=== PATIENT | female | born 1980 | race Caucasian/White ===

== ENCOUNTER 2016-07-22 03:53 | Emergency (ER) | payer BC ==
--- NOTE | 2016-07-22 05:25 | ED NURSING NOTES ---
Clinical Report - [facility] [address] [place] [address] 07/22/2016 3:54 Patient: JENNMay TRIAGE Triage time 04:10. Acuity: LEVEL 4. Chief Complaint: RIGHT LOWER EXTREMITY PAIN, SWELLING, REDNESS and TINGLING. Location of symptoms- (right ankle). Alert. DAVY COMA SCORE: [place] Coma Scale: 15- eyes open spontaneously (4); best verbal response- oriented x 4 (5); best motor response- obeys commands (6). --04:11 Negrito Washburn R.N. 04:05 07/22/16. BP: 116/59. HR: 65. RR: 18 (regular and unlabored). O2 saturation: 100%. Temp: 97.8 F (oral). Pain level now: 11/01. --04:11 Negrito Washburn R.N. Weight: 99.7 kg stated. Height/Length: 70 inches Per Patient. BMI: 31.5. --04:07 Negrito Washburn R.N. Medications PROzac Oral. --04:06 Negrito Washburn R.N. Allergies Hydrocodone. --04:06 Negrito Washburn R.N. Tetracycline. --04:06 Negrito Washburn R.N. History Arrived by private vehicle. Historian: patient. Accompanied by spouse. This occurred just prior to arrival. She has had swelling and redness. PAST MEDICAL HX: Last normal menstrual period- . SOCIAL HX: Never smoker. Occasional alcohol use. No drug use. ( States feeling safe at home, denies a chance of being , denies HI/SI). SELF HARM ASSESSMENT: A self harm assessment was performed. The patient answered "no" to the question "Do you have thoughts of harming or killing yourself?". NUTRITIONAL RISK ASSESSMENT: The nutritional risk assessment revealed no deficiencies. FUNCTIONAL ASSESSMENT: Functional assessment: no impairments noted. LEARNING NEEDS ASSESSMENT: The learning needs assessment revealed no barriers. --04:11 Negrito Washburn R.N. ( Patient states that she "slipper" on the carpet while going to let out the cat, and fell down "2-3" stairs. denies having other injuries, and states that she heard a "crack" coming from her ankle. 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 --04:15 Negrito Washburn R.N. PROBLEMS: Hypertension. Neck Pain. Depression. --04:07 Negrito Washburn R.N. ADDITIONAL SURGERIES: Neck Surgery. --04:07 Negrito Washburn R.N. Interventions ID band on patient. To treatment room. --04:11 Negrito Washburn R.N. PHYSICAL ASSESSMENT Ambulatory to room. GENERAL / NEURO / PSYCH: Oriented X 4. Alert. Appears in pain. Does not appear anxious or in distress. ( See triage note). EXTREMITIES: Neuro-vascular status intact to the extremity. SKIN: Skin is warm and dry. ( minor superficial abrasion to right medial ankle). --04:12 Negrito Washburn R.N. EXTREMITIES: ( Right ankle is reddened and swollen, painful to movement, touch, and position). --04:16 Negrito Washburn R.N. NURSING PROGRESS NOTES Cold pack applied. Reassurance given. Two patient identifiers checked. Call light placed in reach. Side rails up x 1. Bed placed in lowest position. Brakes of bed on. Patient ready for evaluation- chart flagged. Patient waiting for evaluation. --04:13 Negrito Washburn R.N. Patient ready for evaluation- ED physician notified. --04:13 Negrito Washburn R.N. Short leg posterior fiberglass lower extremity splint applied to right leg, ankle and foot. Distal pulses intact and sensation intact. ( sugar tong). --05:17 Freda Logan ( Splint applied by tech). --05:45 Negrito Washburn R.N. DISPOSITION / DISCHARGE Departure time: 05:44. Condition at departure: stable. No learning barriers present. Discharge instructions provided and reviewed with the patient and spouse. Reviewed warnings. Reviewed medication(s) side effects, precautions, dosing and course information. Prescription(s) given to the patient. Treatments reviewed. Reviewed referrals for followup. Patient and spouse verbalized understanding. Written instructions provided in [place]. The patient was discharged home and accompanied by spouse. She left the Emergency Department in a wheelchair on crutches and via private vehicle. Spouse driving. --05:45 Negrito Washburn R.N. 05:43 07/22/16. BP: 118/77. HR: 65 (regular). RR: 16 (regular and unlabored). O2 saturation: 100% on room air. Pain level now: 10/01. --05:45 Negrito Washburn R.N. Locked/Released at 07/22/2016 5:45 by Negrito Washburn R.N.
--- NOTE | 2016-07-22 05:25 | ED ORDER SUMMARY ---
..... Patient: JENNMay OrderSheet [facility] VisitID: [id number] [place] [address] 35y, F Registration Date/Time: 07/22/2016 ORDER SHEET Weight: 99.7 kg (stated) Allergies: Hydrocodone, Tetracycline GENERAL ORDERS: Ankle 3 or 4V Right Urgent (04:13 07/22/2016 DDavis R.N. per protocol) (Ack 4:18 Alice UP Electrical System Specialist) (4:28 DDavis R.N.) Splint (LE) (Right) (Sugar Tong) (Fiberglass) (04:45 07/22/2016 Yolanda SNYDER) (Cancelled: Other4:46 Yolanda SNYDER) Crutches (04:46 07/22/2016 Yolanda SNYDER) (Ack 5:12 DDavis R.N.) (5:14 CHategekimana) Splint (LE) (Right) (Short Leg Posterior, Sugar Tong) (Fiberglass) (04:47 07/22/2016 Yolanda SNYDER) (Ack 5:12 DDavis R.N.) (5:14 CHategekimana) MEDICATION ORDERS: IV FLUIDS: ORDER SHEET NOTES: [Electronically signed by Negrito Washburn R.N. (05:45 07/22/2016)] [Electronically signed by Kit Menjivar MD (08:22 07/22/2016)] [Electronically locked/signed by Negrito Washburn R.N. (05:45 07/22/2016)]
--- NOTE | 2016-07-22 05:25 | ED ORDER SUMMARY ---
..... Patient: JENNMay OrderSheet [facility] VisitID: [id number] [place] [address] 35y, F Registration Date/Time: 07/22/2016 ORDER SHEET Weight: 99.7 kg (stated) Allergies: Hydrocodone, Tetracycline GENERAL ORDERS: Ankle 3 or 4V Right Urgent (04:13 07/22/2016 DDavis R.N. per protocol) (Ack 4:18 Alice UP Computer Graphic Designer) (4:28 DDavis R.N.) Splint (LE) (Right) (Sugar Tong) (Fiberglass) (04:45 07/22/2016 Yolanda SNYDER) (Cancelled: Other4:46 Yolanda SNYDER) Crutches (04:46 07/22/2016 Yolanda SNYDER) (Ack 5:12 DDavis R.N.) (5:14 CHategekimana) Splint (LE) (Right) (Short Leg Posterior, Sugar Tong) (Fiberglass) (04:47 07/22/2016 Yolanda SNYDER) (Ack 5:12 DDavis R.N.) (5:14 CHategekimana) MEDICATION ORDERS: IV FLUIDS: ORDER SHEET NOTES: [Electronically signed by Negrito Washburn R.N. (05:45 07/22/2016)] [Electronically signed by Kit Menjivar MD (08:22 07/22/2016)] [Electronically locked/signed by Negrito Washburn R.N. (05:45 07/22/2016)]
--- NOTE | 2016-07-22 05:25 | ED CLINICAL REPORT ---
Clinical Report - Physicians/Mid Levels [facility] [address] [place] [address] 07/22/2016 3:54 Patient: JENNMay Time Seen: 04:18. Arrived- By private vehicle. Historian- patient. HISTORY OF PRESENT ILLNESS Chief Complaint: Injury to the right ankle. The injury happened just prior to arrival. Fell while walking and landed on a carpeted surface; slipped. Occurred at home. Patient is experiencing severe pain. No other injury. REVIEW OF SYSTEMS The patient complains of pain on weight bearing. She has had swelling. No chills, fever, sweats, calf pain or chest pain. No cough, difficulty breathing, pedal edema, palpitations or abdominal pain. No constipation, diarrhea, nausea, vomiting or urinary problems. All systems otherwise negative, except as recorded above. PAST HISTORY Problems: Hypertension. Neck Pain. Depression. Additional Surgeries: Neck Surgery. Medications: PROzac Oral. Allergies: Hydrocodone. Tetracycline. SOCIAL HISTORY Never smoker. Occasional alcohol use. No drug use. FAMILY HISTORY No significant family medical history. ADDITIONAL NOTES The nursing notes have been reviewed. PHYSICAL EXAM Vital Signs: 07/22/2016 04:05 BP: 116/59. HR: 65. RR: 18. O2 saturation: 100%. Temp: 97.8 F. Pain level now: 9/10. Have been reviewed. Head: Head atraumatic. Eyes: Pupils equal, round and reactive to light. ENT: Pharynx normal. Neck: Normal inspection. CVS: Normal heart rate and rhythm. Heart sounds normal. Respiratory: No respiratory distress. Breath sounds normal. Abdomen: No visible injury. Soft and nontender. Bowel sounds normal. No organomegaly. No mass. Back: Normal inspection. Skin: Skin warm and dry. Extremities: Right ankle: moderate tenderness and swelling. Limited ROM secondary to pain. Neurovascular intact distally. Gait: Gait not tested due to pain. Neuro: No motor deficit. No sensory deficit. LABS, X-RAYS, AND EKG Rt Ankle X-ray: (IMPRESSION: 1. Right medial malleolus fracture.). The X-rays were interpreted by the radiologist and contemporaneously by me. PROGRESS AND PROCEDURES Course of Care: Patient is stable. Consult obtained from orthopedics. Dr. Guerra. Case discussed. Phone consult only. Will see patient in the office. Patient/family counseled. Old medical records ordered. Old records unavailable. Disposition: Discharged. Condition: stable. CLINICAL IMPRESSION Closed right medial malleolus fracture. INSTRUCTIONS Apply ice for 20 minutes four times a day until better. Don't apply ice directly to skin and don't use while asleep. Use crutches until released. Wear fiberglass splint until released. No driving or operating machinery while taking medication. No weight bearing. Warnings: COMPLICATIONS: Complications from this condition include: possible infection. Future problems may include infection, loss of function, pain, deformity and poor fracture healing. INFECTION: Watch for signs of infection (increasing heat and redness, pus-like drainage, swelling, or increased pain). Return or see your doctor if these signs occur. It is important to follow up with a physician for further evaluation and treatment. GENERAL WARNINGS: Return or contact your physician immediately if your condition worsens or changes unexpectedly, if not improving as expected, or if other problems arise. Prescription Medications: Oxycodone/APAP 5 mg/325 mg: take 1 tablet orally every 6 hours as needed for pain. Dispense fifteen (15). No refills. Understanding of the discharge instructions verbalized by patient. [facility] , [address] [address] Follow up today. Call for the next available appointment. (Electronically signed by Kit Menjivar MD 07/22/2016 8:22)
--- NOTE | 2016-07-22 05:25 | ED NURSING NOTES ---
Clinical Report - Nurses [facility] [address] [place] [address] 07/22/2016 3:54 Patient: JENNMay TRIAGE Triage time 04:10. Acuity: LEVEL 4. Chief Complaint: RIGHT LOWER EXTREMITY PAIN, SWELLING, REDNESS and TINGLING. Location of symptoms- (right ankle). Alert. DAVY COMA SCORE: [place] Coma Scale: 15- eyes open spontaneously (4); best verbal response- oriented x 4 (5); best motor response- obeys commands (6). --04:11 Negrito Washburn R.N. 04:05 07/22/16. BP: 116/59. HR: 65. RR: 18 (regular and unlabored). O2 saturation: 100%. Temp: 97.8 F (oral). Pain level now: 11/01. --04:11 Negrito Washburn R.N. Weight: 99.7 kg stated. Height/Length: 70 inches Per Patient. BMI: 31.5. --04:07 Negrito Washburn R.N. Medications PROzac Oral. --04:06 Negrito Washburn R.N. Allergies Hydrocodone. --04:06 Negrito Washburn R.N. Tetracycline. --04:06 Negrito Washburn R.N. History Arrived by private vehicle. Historian: patient. Accompanied by spouse. This occurred just prior to arrival. She has had swelling and redness. PAST MEDICAL HX: Last normal menstrual period- . SOCIAL HX: Never smoker. Occasional alcohol use. No drug use. ( States feeling safe at home, denies a chance of being , denies HI/SI). SELF HARM ASSESSMENT: A self harm assessment was performed. The patient answered "no" to the question "Do you have thoughts of harming or killing yourself?". NUTRITIONAL RISK ASSESSMENT: The nutritional risk assessment revealed no deficiencies. FUNCTIONAL ASSESSMENT: Functional assessment: no impairments noted. LEARNING NEEDS ASSESSMENT: The learning needs assessment revealed no barriers. --04:11 Negrito Washburn R.N. ( Patient states that she "slipper" on the carpet while going to let out the cat, and fell down "2-3" stairs. denies having other injuries, and states that she heard a "crack" coming from her ankle. 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 --04:15 Negrito Washburn R.N. PROBLEMS: Hypertension. Neck Pain. Depression. --04:07 Negrito Washburn R.N. ADDITIONAL SURGERIES: Neck Surgery. --04:07 Negrito Washburn R.N. Interventions ID band on patient. To treatment room. --04:11 Negrito Washburn R.N. PHYSICAL ASSESSMENT Ambulatory to room. GENERAL / NEURO / PSYCH: Oriented X 4. Alert. Appears in pain. Does not appear anxious or in distress. ( See triage note). EXTREMITIES: Neuro-vascular status intact to the extremity. SKIN: Skin is warm and dry. ( minor superficial abrasion to right medial ankle). --04:12 Negrito Washburn R.N. EXTREMITIES: ( Right ankle is reddened and swollen, painful to movement, touch, and position). --04:16 Negrito Washburn R.N. NURSING PROGRESS NOTES Cold pack applied. Reassurance given. Two patient identifiers checked. Call light placed in reach. Side rails up x 1. Bed placed in lowest position. Brakes of bed on. Patient ready for evaluation- chart flagged. Patient waiting for evaluation. --04:13 Negrito Washburn R.N. Patient ready for evaluation- ED physician notified. --04:13 Negrito Washburn R.N. Short leg posterior fiberglass lower extremity splint applied to right leg, ankle and foot. Distal pulses intact and sensation intact. ( sugar tong). --05:17 Freda Logan ( Splint applied by tech). --05:45 Negrito Washburn R.N. DISPOSITION / DISCHARGE Departure time: 05:44. Condition at departure: stable. No learning barriers present. Discharge instructions provided and reviewed with the patient and spouse. Reviewed warnings. Reviewed medication(s) side effects, precautions, dosing and course information. Prescription(s) given to the patient. Treatments reviewed. Reviewed referrals for followup. Patient and spouse verbalized understanding. Written instructions provided in [place]. The patient was discharged home and accompanied by spouse. She left the Emergency Department in a wheelchair on crutches and via private vehicle. Spouse driving. --05:45 Negrito Washburn R.N. 05:43 07/22/16. BP: 118/77. HR: 65 (regular). RR: 16 (regular and unlabored). O2 saturation: 100% on room air. Pain level now: 10/01. --05:45 Negrito Washburn R.N. Locked/Released at 07/22/2016 5:45 by Negrito Washburn R.N.
--- NOTE | 2016-07-22 05:25 | ED CLINICAL REPORT ---
Clinical Report - Physicians/Mid Levels [facility] [address] [place] [address] 07/22/2016 3:54 Patient: JENNMay Time Seen: 04:18. Arrived- By private vehicle. Historian- patient. HISTORY OF PRESENT ILLNESS Chief Complaint: Injury to the right ankle. The injury happened just prior to arrival. Fell while walking and landed on a carpeted surface; slipped. Occurred at home. Patient is experiencing severe pain. No other injury. REVIEW OF SYSTEMS The patient complains of pain on weight bearing. She has had swelling. No chills, fever, sweats, calf pain or chest pain. No cough, difficulty breathing, pedal edema, palpitations or abdominal pain. No constipation, diarrhea, nausea, vomiting or urinary problems. All systems otherwise negative, except as recorded above. PAST HISTORY Problems: Hypertension. Neck Pain. Depression. Additional Surgeries: Neck Surgery. Medications: PROzac Oral. Allergies: Hydrocodone. Tetracycline. SOCIAL HISTORY Never smoker. Occasional alcohol use. No drug use. FAMILY HISTORY No significant family medical history. ADDITIONAL NOTES The nursing notes have been reviewed. PHYSICAL EXAM Vital Signs: 07/22/2016 04:05 BP: 116/59. HR: 65. RR: 18. O2 saturation: 100%. Temp: 97.8 F. Pain level now: 9/10. Have been reviewed. Head: Head atraumatic. Eyes: Pupils equal, round and reactive to light. ENT: Pharynx normal. Neck: Normal inspection. CVS: Normal heart rate and rhythm. Heart sounds normal. Respiratory: No respiratory distress. Breath sounds normal. Abdomen: No visible injury. Soft and nontender. Bowel sounds normal. No organomegaly. No mass. Back: Normal inspection. Skin: Skin warm and dry. Extremities: Right ankle: moderate tenderness and swelling. Limited ROM secondary to pain. Neurovascular intact distally. Gait: Gait not tested due to pain. Neuro: No motor deficit. No sensory deficit. LABS, X-RAYS, AND EKG Rt Ankle X-ray: (IMPRESSION: 1. Right medial malleolus fracture.). The X-rays were interpreted by the radiologist and contemporaneously by me. PROGRESS AND PROCEDURES Course of Care: Patient is stable. Consult obtained from orthopedics. Dr. Guerra. Case discussed. Phone consult only. Will see patient in the office. Patient/family counseled. Old medical records ordered. Old records unavailable. Disposition: Discharged. Condition: stable. CLINICAL IMPRESSION Closed right medial malleolus fracture. INSTRUCTIONS Apply ice for 20 minutes four times a day until better. Don't apply ice directly to skin and don't use while asleep. Use crutches until released. Wear fiberglass splint until released. No driving or operating machinery while taking medication. No weight bearing. Warnings: COMPLICATIONS: Complications from this condition include: possible infection. Future problems may include infection, loss of function, pain, deformity and poor fracture healing. INFECTION: Watch for signs of infection (increasing heat and redness, pus-like drainage, swelling, or increased pain). Return or see your doctor if these signs occur. It is important to follow up with a physician for further evaluation and treatment. GENERAL WARNINGS: Return or contact your physician immediately if your condition worsens or changes unexpectedly, if not improving as expected, or if other problems arise. Prescription Medications: Oxycodone/APAP 5 mg/325 mg: take 1 tablet orally every 6 hours as needed for pain. Dispense fifteen (15). No refills. Understanding of the discharge instructions verbalized by patient. [facility] with[facility], , [address] [facility] [address] Follow up today. Call for the next available appointment. (Electronically signed by Kit Menjivar MD 07/22/2016 8:22)
--- NOTE | 2016-07-22 06:33 | DIAGNOSTIC IMAGING REPORT ---
PROCEDURE: XR ANKLE 3 OR 4 VIEWS - RIGHT INDICATION: TRAUMA/INJURY TECHNIQUE: Three views COMPARISON: None. FINDINGS: Fracture of the medial malleolus with minor displacement. Minor widening of the ankle mortise medially. There is soft tissue swelling medially. IMPRESSION: 1. Right medial malleolus fracture.
--- NOTE | 2016-07-22 08:23 | ED MED RECONCILIATION SUMMARY ---
Patient: JENNMay Medication Reconciliation Report [facility] VisitID: [id number] [place] [address] 35y, F Registration Date/Time: 07/22/2016 Weight: 99.7 kg Height/Length: 70 in. BMI: 31.5 ALLERGIES: Hydrocodone, Tetracycline The patient's Home Medications are listed below: THE FOLLOWING MEDICATIONS NEED TO BE RECONCILED: PROzac Oral The source(s) of the original Home Medication information: Not obtained. The following Medications were given to the patient in the Emergency Department: None. The following Medications were prescribed to the patient: Oxycodone/APAP 5 mg/325 mg: take 1 tablet orally every 6 hours as needed for pain. Dispense fifteen (15). No refills. -- Kit Menjivar MD
--- NOTE | 2016-07-22 08:23 | ED DISCHARGE INSTRUCTIONS ---
Patient: JENN May General Instructions [facility] VisitID: [id number] [address] [place] [address] 35y, F Registration Date/Time: 07/22/2016 Closed right medial malleolus fracture. INSTRUCTIONS Apply ice for 20 minutes four times a day until better. Don't apply ice directly to skin and don't use while asleep. Use crutches until released. Wear fiberglass splint until released. No driving or operating machinery while taking medication. No weight bearing. Warnings: COMPLICATIONS: Complications from this condition include: possible infection. Future problems may include infection, loss of function, pain, deformity and poor fracture healing. INFECTION: Watch for signs of infection (increasing heat and redness, pus-like drainage, swelling, or increased pain). Return or see your doctor if these signs occur. It is important to follow up with a physician for further evaluation and treatment. GENERAL WARNINGS: Return or contact your physician immediately if your condition worsens or changes unexpectedly, if not improving as expected, or if other problems arise. Prescription Medications: Oxycodone/APAP 5 mg/325 mg: take 1 tablet orally every 6 hours as needed for pain. Dispense fifteen (15). No refills. Understanding of the discharge instructions verbalized by patient. Follow-up with: [facility], , [address], [place], [id number] Follow up today. Call for the next available appointment. ADDITIONAL INFORMATION Fracture:Ankle You have a break (fracture) of the ankle. This causes local pain, swelling and sometimes bruising. A fracture is treated with a splint or cast or special boot. It will take about 4-6 weeks for the fracture to heal. Surgery may be needed to fix severe injuries. Home Care: You will be given a splint, cast or boot to prevent movement at the ankle joint. Unless you were told otherwise, use crutches or a walker and do not bear weight on the injured leg until cleared by your doctor to do so. (Crutches and walkers can be rented at many pharmacies and surgical/orthopedic supply stores). Do not put weight on a splint; it will break. Keep your leg elevated to reduce pain and swelling. When sleeping, place a pillow under the injured leg. When sitting, support the injured leg so it is level with your waist. This is very important during the first 48 hours. Apply an ice pack (ice cubes in a plastic bag, wrapped in a towel) over the injured area for 20 minutes every 1-2 hours the first day. You can place the ice pack directly over the splint/cast. Continue with ice packs 3-4 times a day for the next two days, then as needed for the relief of pain and swelling. Keep the cast/splint/boot completely dry at all times. Bathe with your cast/splint/boot out of the water, protected with a large plastic bag, rubber-banded at the top end. If a boot or fiberglass cast/splint gets wet, you can dry it with a hair-dryer. You may use acetaminophen (Tylenol) or ibuprofen (Motrin, Advil) to control pain, unless another pain medicine was prescribed. [ NOTE : If you have chronic liver or kidney disease or ever had a stomach ulcer or GI bleeding, talk with your doctor before using these medicines.] Follow Up with your doctor in one week, or as advised by our staff, to be sure the bone is healing properly. If you were given a splint, it may be changed to a cast at your follow-up visit. [NOTE: A radiologist will review any X-rays that were taken. We will notify you of any new findings that may affect your care.] Get Prompt Medical Attention If Any Of The Following Occur: The plaster cast or splint becomes wet or soft The fiberglass cast or splint remains wet for more than 24 hours Increased tightness or pain under the cast or splint Toes become swollen, cold, blue, numb or tingly Crutch Walking Crutch Adjustment Make sure the crutches you use are adjusted to fit you. When you stand, there should be room to fit 2-3 fingers between the top of the crutch and your armpit. Your elbow should be slightly bent when holding the hand web press operator helper offset. Crutch Walking: Place the crutches forward 12" in front of and 6" to the side of your feet. Lean your weight forward as you push down on the handgrips. Your weight should be on your hands and yourstrong leg, not your armpits . Let your body swing through, landing on the strong leg. Advance the crutches forward again. The crutch and the injured leg should move together. Going Up Steps: ("Up with the good") With both crutches on the same step as your feet, push down on the handgrips. Balancing with very light pressure on the weak leg, let your hands support your weight as you raise your strong leg onto the next higher step. Transfer all your weight to your strong leg (still bent) as you move the crutches up to the next step alongside the strong leg. With your weight evenly balanced on the two crutches and your strong leg, straighten your strong knee as you raise the weak leg up to the next step. Going Down Steps: ("Down with the bad") With both crutches on the same step as your feet, push down on the handgrips. With your weight evenly balanced on the two crutches and your strong leg, bend your strong knee as you lower the weak leg down to the next step. Let your strong leg support you (still bent) as you move the crutches down alongside the weak leg. Transfer your weight to your hands, balancing with very light pressure on the weak leg as you lower your strong leg alongside your weak leg. Splint Care, Fiberglass The following will help you care for your splint: It will take up totwo hours for your fiber glass splint to fully harden; therefore, do notapply any pressure on it during that time or else it may break. To prevent swelling under the splint, for thefirst 48 hours: If the splint is on yourarm, keep it in a sling or raised to shoulder level when sitting or standing; rest it on your chest or on a pillow at your side when lying down. If the splint is on yourfoot, keep it propped up above the level of your waist when sitting or lying. Avoid crutch walking as much as possible during this time. Keep the splint/cast dry at all times. Bathe with your splint/cast well out of the water, protected with a large plastic bag, rubber-banded at the top end. If a fiberglass cast or splint gets wet, you can dry it with a hair-dryer. Follow-up care Follow up with your doctor or this facility as advised. When to seek medical care Get prompt medical attention if any of the following occur: Bad odor from the splint or wound-fluid stains the splint The splint cracks or remains wet over 24 hours Increasing tightness or pressure under the splint Fingers or toes become swollen, cold, blue, numb or tingly Increased pain under the splint Oxycodone Hydrochloride, Acetaminophen Oral tablet What is this medicine? ACETAMINOPHEN; OXYCODONE (a set a AUSTIN terrie fen; ox i KOE done) is a pain reliever. It is used to treat mild to moderate pain. How should I use this medicine? Take this medicine by mouth with a full glass of water. Follow the directions on the prescription label. Take your medicine at regular intervals. Do not take your medicine more often than directed. Talk to your degreasing solution mixer regarding the use of this medicine in children. Special care may be needed. Patients over 65 years old may have a stronger reaction and need a smaller dose. What side effects may I notice from receiving this medicine? Side effects that you should report to your doctor or health medicare compliance auditor as soon as possible: allergic reactions like skin rash, itching or hives, swelling of the face, lips, or tongue breathing difficulties, wheezing confusion light headedness or fainting spells severe stomach pain yellowing of the skin or the whites of the eyes Side effects that usually do not require medical attention (report to your doctor or health medicare compliance auditor if they continue or are bothersome): dizziness drowsiness nausea vomiting What may interact with this medicine? alcohol antihistamines barbiturates like amobarbital, butalbital, butabarbital, methohexital, pentobarbital, phenobarbital, thiopental, and secobarbital benztropine drugs for bladder problems like solifenacin, trospium, oxybutynin, tolterodine, hyoscyamine, and methscopolamine drugs for breathing problems like ipratropium and tiotropium drugs for certain stomach or intestine problems like propantheline, homatropine methylbromide, glycopyrrolate, atropine, belladonna, and dicyclomine general anesthetics like etomidate, ketamine, nitrous oxide, propofol, desflurane, enflurane, halothane, isoflurane, and sevoflurane medicines for depression, anxiety, or psychotic disturbances medicines for sleep muscle relaxants naltrexone narcotic medicines (opiates) for pain phenothiazines like perphenazine, thioridazine, chlorpromazine, mesoridazine, fluphenazine, prochlorperazine, promazine, and trifluoperazine scopolamine tramadol trihexyphenidyl What if I miss a dose? If you miss a dose, take it as soon as you can. If it is almost time for your next dose, take only that dose. Do not take double or extra doses. Where should I keep my medicine? Keep out of the reach of children. This medicine can be abused. Keep your medicine in a safe place to protect it from theft. Do not share this medicine with anyone. Selling or giving away this medicine is dangerous and against the law. Store at room temperature between 20 and 25 degrees C (68 and 77 degrees F). Keep container tightly closed. Protect from light. This medicine may cause accidental overdose and if it is taken by other adults, children, or pets. Flush any unused medicine down the toilet to reduce the chance of harm. Do not use the medicine after the expiration date. What should I tell my health care provider before I take this medicine? They need to know if you have any of these conditions: brain tumor Crohn's disease, inflammatory bowel disease, or ulcerative colitis drink more than 3 alcohol containing drinks per day drug abuse or addiction head injury heart or circulation problems kidney disease or problems going to the bathroom liver disease lung disease, asthma, or breathing problems an unusual or allergic reaction to acetaminophen, oxycodone, other opioid analgesics, other medicines, foods, dyes, or preservatives or trying to get breast-feeding What should I watch for while using this medicine? Tell your doctor or health medicare compliance auditor if your pain does not go away, if it gets worse, or if you have new or a different type of pain. You may develop tolerance to the medicine. Tolerance means that you will need a higher dose of the medication for pain relief. Tolerance is normal and is expected if you take this medicine for a long time. Do not suddenly stop taking your medicine because you may develop a severe reaction. Your body becomes used to the medicine. This does NOT mean you are addicted. Addiction is a behavior related to getting and using a drug for a non-medical reason. If you have pain, you have a medical reason to take pain medicine. Your doctor will tell you how much medicine to take. If your doctor wants you to stop the medicine, the dose will be slowly lowered over time to avoid any side effects. You may get drowsy or dizzy. Do not drive, use machinery, or do anything that needs mental alertness until you know how this medicine affects you. Do not stand or sit up quickly, especially if you are an older patient. This reduces the risk of dizzy or fainting spells. Alcohol may interfere with the effect of this medicine. Avoid alcoholic drinks. There are different types of narcotic medicines (opiates) for pain. If you take more than one type at the same time, you may have more side effects. Give your health care provider a list of all medicines you use. Your doctor will tell you how much medicine to take. Do not take more medicine than directed. Call emergency for help if you have problems breathing. The medicine will cause constipation. Try to have a bowel movement at least every 2 to 3 days. If you do not have a bowel movement for 3 days, call your doctor or health medicare compliance auditor. Do not take Tylenol (acetaminophen) or medicines that have acetaminophen with this medicine. Too much acetaminophen can be very dangerous. Many nonprescription medicines contain acetaminophen. Always read the labels carefully to avoid taking more acetaminophen. You have been given the following additional information: Fracture, Ankle (General) Crutch Walking Splint Care, Fiberglass Oxycodone Hydrochloride, Acetaminophen Oral tablet No driving or operating machinery while taking medication. No weight bearing. (Electronically signed by Kit Menjivar MD 07/22/2016 8:22)
--- NOTE | 2016-07-22 08:23 | ED MAR SUMMARY ---
..... Medication Administration Record [facility] [address] [place], [place] [id number] Patient: JENN May Visit ID: [id number] 35y, F Weight: 99.7 kg Height/Length: 70 in BMI: 31.5 ALLERGIES: Tetracycline, Hydrocodone
--- NOTE | 2016-07-22 08:23 | ED MAR SUMMARY ---
..... Medication Administration Record [facility] [address] [place], [place] [id number] Patient: JENN May Visit ID: [id number] 35y, F Weight: 99.7 kg Height/Length: 70 in BMI: 31.5 ALLERGIES: Tetracycline, Hydrocodone
--- NOTE | 2016-07-22 08:23 | ED MED RECONCILIATION SUMMARY ---
Patient: JENNMay Medication Reconciliation Report [facility] VisitID: [id number] [place] [address] 35y, F Registration Date/Time: 07/22/2016 Weight: 99.7 kg Height/Length: 70 in. BMI: 31.5 ALLERGIES: Hydrocodone, Tetracycline The patient's Home Medications are listed below: THE FOLLOWING MEDICATIONS NEED TO BE RECONCILED: PROzac Oral The source(s) of the original Home Medication information: Not obtained. The following Medications were given to the patient in the Emergency Department: None. The following Medications were prescribed to the patient: Oxycodone/APAP 5 mg/325 mg: take 1 tablet orally every 6 hours as needed for pain. Dispense fifteen (15). No refills. -- Kit Menjivar MD
[2016-07-23] MEDS ORDERED: PROZAC20 MG PO (17:33)
[2016-07-23] MEDS ORDERED: PERCOCET1 TA1 PO (17:34)
[2016-07-23] MEDS ORDERED: PERCOCET1 TA4 PO (17:35)
== END 2016-07-22 05:45 | disposition home or self-care (01) ==
LOC: ED SRH 03:53
DX: S82.51XA Displaced fracture of medial malleolus of right tibia, initial encounter for closed fracture (principal); W01.0XXA Fall on same level from slipping, tripping and stumbling without subsequent striking against object, initial encounter; Y93.01 Activity, walking, marching and hiking; Y99.9 Unspecified external cause status; Y92.009 Unspecified place in unspecified non-institutional (private) residence as the place of occurrence of the external cause; I10 Essential (primary) hypertension; Z79.899 Other long term (current) drug therapy; Z88.1 Allergy status to other antibiotic agents; Z88.2 Allergy status to sulfonamides

== ENCOUNTER 2016-07-23 10:35 | Outpatient (CLI) | payer BC ==
[2016-07-23] MEDS ORDERED: PROZAC20 MG PO (17:33)
[2016-07-23] MEDS ORDERED: PERCOCET1 TA1 PO (17:34)
[2016-07-23] MEDS ORDERED: PERCOCET1 TA4 PO (17:35)
== END 2016-07-23 23:00 | disposition home or self-care (01) ==
LOC: LAB SRH 10:35
DX: Z01.818 Encounter for other preprocedural examination (principal); Z01.812 Encounter for preprocedural laboratory examination
CPT/HCPCS: 90074; 94001; 94060; 95059

== ENCOUNTER 2016-07-27 11:22 | Day surgery (SDC) | payer BC ==
--- NOTE | 2016-07-24 17:19 | HISTORY AND PHYSICAL ---
ADMITTED: 07/27/2016 CHIEF COMPLAINT: Pain in the right ankle and leg. HISTORY OF PRESENT ILLNESS: This 35-year-old woman slipped and fell and injured her right ankle. She was seen in our emergency room and referred to the clinic. X-rays revealed a disruption of the distal tibiofibular syndesmosis with a fracture of the medial malleolus and a proximal fracture of the fibula making a Maisonneuve fracture dislocation of the ankle. The patient was advised to have an open reduction and internal fixation of the intra-articular medial malleolar fracture and to have internal fixation of the distal syndesmotic injury. She is being seen as a same day surgery for that problem. MEDICAL/SURGICAL HISTORY: PAST MEDICAL HISTORY: She had a history of hypertension during , but never when she was not . She denies history of any adverse effect of anesthesia on her or her family. She denies any bleeding disorders. MEDICATIONS: 1. Her only medication is Prozac 20 mg. ALLERGIES: hydrocodone but percocet is OK SOCIAL HISTORY: FAMILY HISTORY: REVIEW OF SYSTEMS: She denies seizure or stroke. She denies irregular heartbeat, chest pain on exertion, history of requiring a pacemaker or having a myocardial infarction. She denies a history of recent pneumonia or of tuberculosis or asthma. She denies kidney infection or kidney failure or kidney stones. She denies diabetes or thyroid disease. PHYSICAL EXAMINATION: GENERAL: A well-nourished, well-developed woman, alert, oriented, not in acute distress. VITAL SIGNS: Her weight is 220 pounds. HEENT: Head is normocephalic, atraumatic. NECK: Painlessly supple. LUNGS: Clear to auscultation without abnormal breath sounds. ABDOMEN: Without tenderness, masses, or organomegaly. HEART: Regular, without murmur, rub, or gallop. EXTREMITIES: The ankle is swollen and tender over the medial malleolus. There is no tenderness in the posterior proximal calf. There is tenderness on the lateral aspect of the calf at the level of the fibular neck. IMPRESSION: 1. Maisonneuve fracture dislocation of the right ankle. PLAN: I have discussed the risks and benefits of surgical repair of the medial malleolus and internal fixation of the distal tibiofibular syndesmosis. I explained it would be 8 weeks of nonweightbearing and then she would need removal of the syndesmotic screw. I will see her back in the operating room on 07/27/2016. She has consented to the procedure after informing her of the risks and benefits.
[~2016-07-27] VITALS: Ht 177.8 cm; Wt 110.0 kg
[~2016-07-27 11:22] MED LIST: PERCOCET1 TA1 PO; PERCOCET1 TA4 PO; PROZAC20 MG PO
--- NOTE | 2016-07-27 12:50 | NUR ---
PATIENT ASSESSMENT AND MED/ALLERGY REVIEW COMPLETE. CONSENT SIGNED BY PATIENT AND WITNESSED BY RN. URINE PREG OBTAINED. PREOP INSTRUCTIONS DISCUSSED. QUESTIONS ENCOURAGED AND ANSWERED BY RN. IV START ATTEMPTED 3 TIMES BY MULTIPLE RN'S WITH NO SUCCESS. OR CALLED TO ALERT OF NEED FOR IV. WILL CONTINUE TO MONITOR.
--- NOTE | 2016-07-27 14:45 | NUR ---
PT BROUGHT TO PRE-OP WITHOUT IV ACCESS. I SHAISTA MADE 2 ATTEMPTS ONE IN LFOOT AND ONE IN LWRIST UNSUCESSFUL. GRACIELA SIMON STARTED IV IN PT LEFT EXTERNAL JUGULAR WITH ONE ATTEMPT. ONCE PT INTUBATED IV STARTED IN LEFT HAND EJ IV LEFT IN BUT SALINE LOCKED.
--- NOTE | 2016-07-27 15:43 | NUR ---
EJ IV REMOVED BY GRACIELA OWUSU
--- NOTE | 2016-07-27 15:57 | DIAGNOSTIC IMAGING REPORT ---
PROCEDURE: XR FLUOROSCOPY UP TO 1 HOUR INDICATION: ORIF R ANKLE TECHNIQUE: Intraoperative fluoroscopy provided for ankle ORIF. Total fluoro time 46 seconds. Cumulative dose 2.9 mGy. COMPARISON: Plain films 07/22/2016 FINDINGS: Medial malleolar lag screw and syndesmotic screw are present fixing the medial malleolar fracture dislocation. There is near anatomic alignment of the ankle mortise. Posterior malleolar fracture is also seen. Skin slim are present laterally. IMPRESSION: 1. Intraoperative imaging for ankle ORIF.
[2016-07-27] MEDS ORDERED: MAPAP325 MG PO (16:29)
--- NOTE | 2016-07-27 16:38 | Provider's Discharge Care Plan ---
Problem, Goal, Plan Problem List 1. Fracture, ankle closed, bimalleolar Discharge Instructions Instructions: 1. Start medication(s), Aspirin 325 twice daily in AM and PM with food 2. GEt clinic appointment 10-13 days at orthopedic clinic 3. walk with crutches no weight on right leg
[2016-07-27 17:04] VITALS: BP 160/103
--- NOTE | 2016-07-27 17:08 | NUR ---
PRIOR D/C FROM PACU PT IS AWAKE AND ALERT.PT DENIES NAUSEA. PT STATES THAT HER RIGHT ANKLE PAIN IS "STAYING THE SAME" AFTER DILAUDID 0.5 MG X4 IV. RIGHT FOOT IS ELEVATED ON PILLOW. VSMinh SNYDER TALKE TO PT IN PACU. REPORT GIVEN TO RN.
[2016-07-27 17:15] VITALS: BP 162/105
--- NOTE | 2016-07-27 17:21 | NUR ---
PATIENT IS ALERT AND ORIENTED. NO C/O CHEST PAIN. NO C/O N/V NO C/O SOB. LUNG SOUNDS CLEAR. BOWEL TONES PRESENT ALL QUARDRANTS. HEART TONES WNL. HAS GOOD FEELING IN BLE, CAN WIGGLE TOES ON RIGHT FOOT WITH CAST, TOES GOOD COLOR (PINK). IN NO DISTRESS AT MOMENT.
[2016-07-27 17:32] VITALS: BP 164/110
[2016-07-27 17:45] VITALS: BP 168/103
[2016-07-27 18:15] VITALS: BP 155/73
[2016-07-27 18:51] VITALS: BP 150/100
--- NOTE | 2016-07-27 18:51 | NUR ---
SAID OK TO DISCHARGE HOME WITH CURRENT VITALS SIGNS.
--- NOTE | 2016-07-27 18:57 | NUR ---
TOLD DR GARVEY PATIENTS MOST CURRNET VITALS AGAIN B/P, PULSE AND MD SAID IT IS STILL OK TO DISCHARGE HOME.
--- NOTE | 2016-07-27 20:54 | OPERATIVE REPORT ---
DATE OF SURGERY: 07/27/2016 SURGEON: Johan Guerra MD PREOPERATIVE DIAGNOSIS: 1. Fracture of the proximal fibula and fracture of the medial malleolus right lower leg with disruption of the syndesmosis. This is known as a Maisonneuve fracture dislocation of the ankle POSTOPERATIVE DIAGNOSIS: 1. Fracture of the proximal fibula and fracture of the medial malleolus right lower leg with disruption of the syndesmosis. This is known as a Maisonneuve fracture dislocation of the ankle PROCEDURE PERFORMED: 1. ESTIMATED BLOOD LOSS: Negligible. TOURNIQUET TIME: 70 minutes. ANESTHESIA: General by endotracheal tube. FLUIDS: No blood transfusion was required. IMPLANTS: A 4.0 mm distally threaded cannulated screw was put in to hold the syndesmosis. The implants were a 4.0 cannulated syndesmotic screw distally threaded and a second 4.0 cannulated screw to hold the medial malleolar fracture. SURGICAL TECHNIQUE: The patient was brought to the operating room, anesthetized in the supine position and a gel pad bump was placed behind the back to slightly internally rotate lower extremity. An image intensifier was used to view the procedure. Attention was turned to the unfractured distal fibula. Reduction of the syndesmosis was achievable by internal rotation and inversion of the foot while pressing on the medial tibia. An medical laboratory assistant pulled the foot into inversion and internal rotation while I stabilized the medial tibia position. This reduced the syndesmosis and a guidewire was placed across the tibia and the guidewire projected 5 mm beyond the tibial medial cortex. This was measured for depth and the screw was screwed into place by hand after using a 2.7 drill to break the cortex of the fibula and the lateral cortex of the tibia. The screw was screwed into place and tightened to a light 2-finger tightness. The syndesmosis appeared reduced. Attention was turned to the medial side of the ankle where a straight medial longitudinal incision was made in the subcutaneous tissue then blunt and sharp dissection used to go down to the periosteum. Hemostasis was obtained with the electrocautery. The medial malleolus was reduced with a sharp pointed bone reducing forceps with one end stuck in the tibial metaphysis and the other end at the tip of the medial malleolus. This allowed manipulation of the medial malleolus into reduction. The reduction was checked on the image intensifier and found to be very good. Then the guidewire had been driven up the medial malleolus and into the metaphyseal portion of the tibia. A 46 mm 4-0 cannulated distally threaded screw was used and screwed up and into place until the fracture site was compressed and no longer visible on the image intensifier. The wounds were then closed in layers of the subcutaneous tissue and then the skin was stapled. The wounds were irrigated out prior to closure. A sterile dressing was placed upon the wound and the wound was covered with the sterile dressing and sterile cast padding and then a well-padded short-leg cast was applied. The patient tolerated the procedure well and was brought from the operating room in good condition.
--- NOTE | 2016-07-27 21:59 | NUR ---
PATIENT WAS WHEELED DOWN TO LOBBY WITH A CREDIT AUTHORIZER. MD WAS AWARE OF HER CURRENT VITAL SIGNS UPON DISCHARGE. GOOD SENSATION IN CASTED FOOT. GOOD COLOR (PINK) COULD WIGGLKE TOES WELL. WAS IN NO DISTRESS. GAVE DISCHARGE PACKET TO HER. EXPLAINED ALL SYMPTOMS TO REPOT (SIGNS OF INFECTION, PURPLE TOES, DECREASED SENSATION/ SWELLING, OR UNABLE TO MOVE TOES), TALKED TO HER ABOUT POSSIBLE COMPLICATIONS WITH A FRACTURE FOOT. D/C IV. CATHERTER WAS INTACT. HAD ALL HER BELONGINGS. AND DISCHARGE PACKET. VSS. TOLD HER WOUND CARE INSTRUCTIONS AND TO KEEP CAST DRY. TOLD HER TO CALL TOMORROW FOR HER FOLLOW UP APPOINTMENT.
--- NOTE | 2016-07-27 22:04 | NUR ---
TOLD PT TO CALL IF ANYTHING WAS HURTING OR OUT OF THE NORMAL FOR HER. TOLD HER THE IMPORTANCE OF MAKING SURE SHE HAS GOOD CIRCULATION IN FOOT, AND MAKING SURE THE CAST ISNT TO TIGHT AND WHAT SYMPTOMS TO BE AWARE OF WHEN WEARING A CAST.
--- NOTE | 2016-07-27 22:06 | NUR ---
MADE SURE SHE UNDERSTOOD SIGNS OF INFECTION WELL (FEVER, ETC).
== END 2016-07-27 19:00 | disposition home or self-care (01) ==
LOC: OR SRH 11:22 → ACUTE3 SRH 11:23 → OR SRH 13:00 → ACUTE2 SRH 17:11 → OR SRH 19:00
PROVIDERS: Orthopaedic Surgery
PROC: 0QSG04Z Reposition Right Tibia with Internal Fixation Device, Open Approach (ICD-10-PCS; principal; 2016-07-27 13:00)
PROC: 0SSF04Z Reposition Right Ankle Joint with Internal Fixation Device, Open Approach (ICD-10-PCS; principal; 2016-07-27 13:00)
DX: S82.861A Displaced Maisonneuve's fracture of right leg, initial encounter for closed fracture (principal); S82.831A Other fracture of upper and lower end of right fibula, initial encounter for closed fracture; W01.0XXA Fall on same level from slipping, tripping and stumbling without subsequent striking against object, initial encounter